=== PATIENT | female | born 1955 | race Caucasian/White ===

== ENCOUNTER 2019-08-17 10:20 | Inpatient (IN) | payer MEDICARE, BC ==
[~2019-08-17] VITALS: Ht 170.2 cm; Wt 58.1 kg
--- NOTE | 2019-08-17 10:25 | NUR ---
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 On room air, breathing evenly and unlabored. connected to the monitor and pulse ox. kept comfortable, will continue to monitor accordingly.
[2019-08-17 10:54] LABS: BASOPHILS % (AUTO) 0.5 % (0.0-2.0); EOSINOPHILS % (AUTO) 3.9 % (0.0-6.0); HEMATOCRIT 46 % (33-45); HEMOGLOBIN 15.3 g/dL (11.5-14.8); LYMPHOCYTES # (AUTO) 1.4 /CMM (0.8-4.8); LYMPHOCYTES % (AUTO) 33.5 % (20.0-44.0); MEAN CORPUSCULAR HGB CONC 33 g/dl (31.0-36.0); MEAN CORPUSCULAR VOLUME 96 fL (82-100); MONOCYTES # (AUTO) 0.4 /CMM (0.1-1.30); MONOCYTES % (AUTO) 9.4 % (2.0-12.0); NEUTROPHILS # (AUTO) 2.2 /CMM (1.8-8.9); NEUTROPHILS % (AUTO) 52.7 % (43.0-81.0); PLATELET COUNT (AUTO) 222 /CMM (150-450); RED BLOOD CELL COUNT(AUTO) 4.83 MIL/uL (4.0-5.2); WHITE BLOOD COUNT (AUTO) 4.2 K/uL (4.3-11.0)
[2019-08-17] MEDS ORDERED: IV NS 0.9% 1,000 ML BAG IV ONE (11:00)
[2019-08-17] MEDS ORDERED: AMLO5TAB9 PO (11:07)
[2019-08-17] MEDS ORDERED: ESCI10TA PO (11:07)
[2019-08-17] MEDS ORDERED: ASPI-992 PO (11:07)
[2019-08-17] MEDS ORDERED: ATOR10TA PO (11:08)
[2019-08-17 11:09] LABS: CALCIUM, SERUM 9.3 mg/dL (8.5-10.1); CARBON DIOXIDE 33 mmol/L (21-32); CHLORIDE 105 mmol/L (98-107); CREATININE 0.8 mg/dL (0.6-1.3); GLUCOSE 69 mg/dL (74-106); POTASSIUM 4.9 mmol/L (3.5-5.1); SODIUM SERUM 140 mmol/L (136-145); UREA NITROGEN, BLOOD 12 mg/dL (7-18)
[2019-08-17 11:15] LABS: ALANINE AMINOTRANSFERASE 25 U/L (12-78); ALBUMIN 3.8 g/dL (3.4-5.0); ALKALINE PHOSPHATASE 65 U/L (46-116); ASPARTATE AMINOTRANSFERASE 28 U/L (15-37); BILIRUBIN,DIRECT 0.1 mg/dL (0.0-0.2); BILIRUBIN,TOTAL 0.5 mg/dL (0.2-1.0); LIPASE 322 U/L (73-393)
--- NOTE | 2019-08-17 11:55 | NUR ---
wheeled patient via wheelchair to ct
--- NOTE | 2019-08-17 12:29 | NUR ---
CALLED NURSING SUP FOR TELE BED.
--- NOTE | 2019-08-17 12:29 | NUR ---
PANEL ON-CALL PAGED
[2019-08-17] MEDS ORDERED: ASPIRIN 81 MG TAB.CHEW PO ONE ×2 (12:30→13:00)
[2019-08-17] MEDS ORDERED: ASPIRIN 81 MG TAB.CHEW ONE (12:58)
[2019-08-17] MEDS ORDERED: Z GUARD REMEDY 2 OZ OINT TP PRN ×2 (13:00→13:30)
[2019-08-17] MEDS ORDERED: MAG HYDROX/AL HYDROX/SIMETH 30 ML UDC PO PRN (13:00)
[2019-08-17] MEDS ORDERED: MAGNESIUM HYDROXIDE 30 ML UDC PO PRN (13:00)
[2019-08-17] MEDS ORDERED: ONDANSETRON HCL/PF 4 MG/2 ML VIAL IVP PRN (13:00)
[2019-08-17] MEDS ORDERED: HYDROCODONE/APAP 5/325MG 1 EACH TABLET PO PRN (13:00)
[2019-08-17] MEDS ORDERED: ACETAMINOPHEN 325 MG TABLET PO PRN (13:00)
[2019-08-17] MEDS ORDERED: ZOLPIDEM TARTRATE 5 MG TABLET PO PRN ×2 (13:00→13:30)
--- NOTE | 2019-08-17 13:03 | NUR ---
PT IS GOING TO 326-1/CALL KAHLIL PULIDO FOR REPORT
--- NOTE | 2019-08-17 13:13 | NUR ---
REPORT GIVEN TO TESS GUILLORY FOR GIULIANO
--- NOTE | 2019-08-17 13:35 | NUR ---
RN ADMITTING NOTES ADMITTED A 64 YEARS OLD, F, TO UNIT VIA GURNEY ACCOMPANIED BY E.R STAFF. A/O X4. ABLE TO MAKE NEEDS KNOWN. PATIENT ORIENTED TO ROOM, UNIT AND STAFF. NO SIGNS OF DISTRESS NOTED AT THIS TIME, NO COMPLAIN OF PAIN, NO SLURRED SPEECH NOTED. ON ROOM AIR, LUNGS CLEAR ON AUSCULTATION. ABDOMEN SOFT, NON DISTENDED WITH POSITIVE BOWEL SOUNDS ON FOUR QUADRANTS, IV ACCESS ON RAC #18, PATENT AND INTACT. SAFETY MEASURES INITIATED, BED PLACED IN LOWEST LOCKED POSITION WITH SIDE RAILX UP X2, CALL LIGHT WITHIN EASY REACH. HOSPITALIST MADE AWARE, WILL CONTINUE TO MONITOR.
[2019-08-17 13:40] VITALS: BP 129/86
[2019-08-17 16:00] VITALS: BP 106/71
[2019-08-17] MEDS: ASPIRIN 325 MG TABLET PO SCH (17:08)
[2019-08-17] MEDS: AMLODIPINE BESYLATE 5 MG TABLET PO SCH (17:08)
--- NOTE | 2019-08-17 18:50 | NUR ---
RN NOTES PATIENT IN BED RESTING COMFORTABLY IN MODERATE HIGH BACK REST. A/O X4. ABLE TO MAKE NEEDS KNOWN. NO SIGNS OF DISTRESS NOTED THROUGHOUT THE SHIFT, NO COMPLAIN OF CHEST PAIN, NO SLURRED SPEECH NOTED. IV ACCESS ON RAC #18, PATENT AND INTACT. SAFETY MEASURES IN PLACE, BED PLACED IN LOWEST LOCKED POSITION WITH SIDE RAILS UP X2, CALL LIGHT IN REACH. WILL ENDORSE TO ROLLER LEVELER OPERATOR NURSE FOR GIULIANO.
--- NOTE | 2019-08-17 19:26 | NUR ---
ESCROW MANAGER: RECEIVED PATIENT Patient in bed, awake. Sinus rhythm in the Tele monitor. NIH stroke scare score 0. On room air, tolerating well, denies SOB.
[2019-08-17 20:00] VITALS: BP 119/57
[2019-08-17 20:20] VITALS: BP 119/57
--- NOTE | 2019-08-17 21:17 | NUR ---
PATIENT REFUSED LIPITOR Patient refused medication-Lipitor due at bedtime, per patient at home she is taking Livalo (Pitavastatin) for cholesterol. Patient wants to keep bottle of Livalo medication at bedside and take it by herself. Informed patient, home medication that brought into the hosp and non formulary medication needs to be verified first by the hosp pharmacy. Per patient Livalo is expensive and does not want to endorse medication to send to pharmacy, patient declined education.
[2019-08-17] MEDS ORDERED: ATORVASTATIN 10 MG TABLET PO SCH (22:00)
[2019-08-18] VITALS: BP 126/77
[2019-08-18 04:00] VITALS: BP 107/72
--- NOTE | 2019-08-18 06:38 | NUR ---
SOLUTION PROFESSIONAL: END OF SHIFT REPORT Patient in bed, adequate oxygenation on room air. Sinus rhythm in the Tele monitor. NIH stroke scale 0, no c/o chest pain. PT/OT to follow. Plan for Neuro consult. Fall precaution maintained.
[2019-08-18 06:59] LABS: CHOLESTEROL 159 mg/dL (<200); HDL CHOLESTEROL 83 mg/dL (40-60); LDL 68 mg/dL (0-99); TRIGLYCERIDES 55 mg/dL (30-150)
[2019-08-18 08:00] VITALS: BP 113/72
[2019-08-18] MEDS: ESCITALOPRAM OXALATE (10 MG) 10 MG TABLET PO SCH (08:09)
--- NOTE | 2019-08-18 08:57 | NUR ---
RN NOTE Patient has allergy to iodine and patient stated she gets allergic reaction of hives. Patient stated she thinks she has had a CT with contrast but before, however we don't have any record in her chart from previous, tried calling [facility] medical records is closed on the weekends. Notified Dr. Dumont and per , ok to cancel CTA of brain/carotid. retail buyer made aware. Maye Watt N.P. made aware.
--- NOTE | 2019-08-18 13:00 | NUR ---
RN NOTE Urine specimen sent to lab.
[2019-08-18 14:45] LABS: APPEARANCE,URINE CLEAR (CLEAR); BILIRUBIN,URINE NEGATIVE (NEGATIVE); BLOOD, URINE NEGATIVE Ery/uL (NEGATIVE); COLOR,URINE YELLOW (YELLOW); KETONES,URINE NEGATIVE (NEGATIVE); LEUKOCYTE ESTERASE ,URINE NEGATIVE (NEGATIVE); NITRITE, URINE NEGATIVE (NEGATIVE); PH,URINE 5.5 (5.0-8.0); PROTEIN,URINE NEGATIVE (NEGATIVE); UGLUCOSE NEGATIVE (NEGATIVE); UROBILINOGEN,URINE 0.2 EU/dL (0.2)
--- NOTE | 2019-08-18 15:04 | NUR ---
RN NOTE Patient is taking home med LIVALO 2mg at bedtime, refuses to give medication to pharmacy, prefers to keep it at bedside. KIDNEY TRIMMER made aware, pharmacy aware.
[2019-08-18 16:00] VITALS: BP 117/73
[2019-08-18] MEDS: ASPIRIN 325 MG TABLET PO SCH (17:44)
[2019-08-18] MEDS: AMLODIPINE BESYLATE 5 MG TABLET PO SCH (17:44)
--- NOTE | 2019-08-18 19:24 | NUR ---
MS RN: RECEIVED PATIENT Patient in bed, awake. A/O x4 appears comfortable in bed, feels frustrated not going home today. Educate on benefits and treatments while in the hospital, patient verbalized understanding. NIH stroke scale QS done, score 0. EEG result pending per KAHLIL Platt/am primary nurse. Fall precaution maintained.
--- NOTE | 2019-08-18 19:34 | NUR ---
RN CLOSING NOTE Patient is resting in bed, A/O x4, showing no signs of acute distress or SOB, stable on RA. IV line is clean and intact, flushing well. All patient needs met, all due medications given, patient is independent with care. Bed is in lowest position, side rails x3 in upright position, call light is within reach, fall safety and aspiration precautions enforced. Will endorse to night time nanny.
[2019-08-18 20:00] VITALS: BP 115/75
[2019-08-18 20:20] VITALS: BP 115/75
[2019-08-18] MEDS ORDERED: LIVALO 2 MG PO SCH (22:00)
--- NOTE | 2019-08-19 07:18 | NUR ---
MS RN: END OF SHIFT REPORT Patient in bed, adequate oxygenation on room air. NIH stroke scale score 0. EEG resulted with Normal electroencephalogram during wakefulness and drowsiness, see results. Fall precaution maintained.
--- NOTE | 2019-08-19 07:36 | NUR ---
RN OPENING NOTE Patient is resting in bed, A/O x4, showing no signs of acute distress or SOB, stable on RA. IV line is clean and intact, flushing well. Bed is in lowest position, side rails x3 in upright position, call light is within reach, fall safety and aspiration precautions enforced. Will continue with plan of care.
[2019-08-19 08:00] VITALS: BP 107/67
[2019-08-19] MEDS: ESCITALOPRAM OXALATE (10 MG) 10 MG TABLET PO SCH (08:20)
[2019-08-19] MEDS ORDERED: ACET325T53 PO (10:43)
--- NOTE | 2019-08-19 11:15 | NUR ---
LOCAL COMBINATION TRUCK DRIVER NOTE Patient is medically stable for discharge. Patient is A/o x4, showing no signs of acute distress or SOB, stable on RA. DC instructions provided and patient verbalized understanding prescription with patient, belongings list checked, all belongings are with the patient. IV line removed, ID band removed. Skin assessed and skin remains intact. All patient needs met, all due medications given. Patient left unit and picked up by en route to home. Charge nurse aware, PLASTICS HEAT WELDER aware.
== END 2019-08-19 11:15 | disposition home or self-care (01) | DRG 69 ==
LOC: ER 10:21 → TELE 13:24 → MED 08-18 09:30
PROVIDERS: ADMIT Nurse Practitioner Acute Care; ATTEND Nurse Practitioner Acute Care
DX: G45.9 Transient cerebral ischemic attack, unspecified (principal); F32.9 Major depressive disorder, single episode, unspecified; E78.5 Hyperlipidemia, unspecified; I10 Essential (primary) hypertension; Z79.82 Long term (current) use of aspirin; Z86.73 Personal history of transient ischemic attack (TIA), and cerebral infarction without residual deficits; R53.1 Weakness; R29.700 NIHSS score 0; R40.2362 Coma scale, best motor response, obeys commands, at arrival to emergency department; R40.2142 Coma scale, eyes open, spontaneous, at arrival to emergency department; R40.2252 Coma scale, best verbal response, oriented, at arrival to emergency department; R47.81 Slurred speech
CPT/HCPCS: 36415; 70450-TC; 80048-TC; 80061-TC; 80076-TC; 80305; 81000-TC; 82962-TC; 83690-TC; 84484-TC; 85025-TC; 85652-TC; 85730-TC; 87081-TC; 92611-TC; 93307-TC; 95819-TC; 97116-TC; 97530-TC; G0378; J7030